=== PATIENT | female | born 1980 | race Two or more races ===

== ENCOUNTER → 2024-10-05 | Day surgery (SDC) | payer OTHER | END | disposition home or self-care (01) | LOC: JRADUS-SUR 08:03 | PROVIDERS: ATTEND Family Medicine | PROC: 0H9T3ZZ Drainage of Right Breast, Percutaneous Approach (ICD-10-PCS; principal; 2024-10-05) | DX: N60.01 Solitary cyst of right breast (principal) | CPT/HCPCS: 19000 ==